=== PATIENT | male | born 1995 | race Caucasian/White ===

== ENCOUNTER 2016-03-25 20:58 | Emergency (ER) | payer OTHER ==
[~2016-03-25] VITALS: Ht 177.8 cm; Wt 78.9 kg
[2016-03-25 21:10] VITALS: BP 122/66
== END 2016-03-25 21:37 | disposition home or self-care (01) ==
LOC: ER 21:01
DX: H73.012 Bullous myringitis, left ear (principal)
CPT/HCPCS: A4606; Z7610

== ENCOUNTER 2018-07-22 15:53 | Emergency (ER) | payer OTHER ==
[~2018-07-22] VITALS: Ht 175.3 cm; Wt 92.5 kg
[2018-07-22 15:57] VITALS: BP 158/103
--- NOTE | 2018-07-22 16:03 | NUR ---
DR. GARCIA AT BEDSIDE FOR EVAL.
--- NOTE | 2018-07-22 16:15 | NUR ---
SORTER LAUNDRY ARTICLES AT BEDSIDE FOR XRAY.
--- NOTE | 2018-07-22 16:35 | NUR ---
Patient discharged to home in stable condition. Written and verbal after care instructions given. Patient verbalizes understanding of instruction.
== END 2018-07-22 16:38 | disposition home or self-care (01) ==
LOC: ER 15:53
DX: M79.672 Pain in left foot (principal); F10.10 Alcohol abuse, uncomplicated; F17.200 Nicotine dependence, unspecified, uncomplicated; Y90.9 Presence of alcohol in blood, level not specified; Z60.2 Problems related to living alone
CPT/HCPCS: 73630-TC

== ENCOUNTER 2019-05-19 13:09 | Emergency (ER) | payer OTHER ==
[~2019-05-19] VITALS: Ht 175.3 cm; Wt 91.2 kg
[2019-05-19 13:14] VITALS: BP 156/107
== END 2019-05-19 15:11 | disposition home or self-care (01) ==
LOC: ER 13:16
DX: J02.8 Acute pharyngitis due to other specified organisms (principal); H10.9 Unspecified conjunctivitis; F17.200 Nicotine dependence, unspecified, uncomplicated; Z60.2 Problems related to living alone
CPT/HCPCS: 86403-TC; 87070-TC